=== PATIENT | male | born 1990 | race Caucasian/White ===

== ENCOUNTER 2020-03-23 22:36 | Inpatient (IN) ==
[2020-03-23] MEDS ORDERED: SODIUM CHLORIDE 0.9% 1000ML 1,000 ML IV ONE (23:17)
--- NOTE | 2020-03-23 23:22 | Emergency Department Note ---
History of Present Illness General Chief complaint: Leg Injury/Pain Stated complaint: SEVERE THIGH/LEG PAIN Time Seen by Provider: 03/23/20 23:03 Source: patient Mode of arrival: other Limitations: no limitations History of Present Illness Provider complaint: Bilateral leg pain Onset (ago): day(s) 2 Location: lower extremity Radiation: non-radiation Severity: severe Maximum Pain Intensity: 10 Quality: + constant Relieved By: + none Exacerbated By: + movement Associated symptoms: + denies other symptoms Treatments prior to arrival: NSAID, aspirin and heat therapy This is a 29-year-old male who presents with nursing home guards due to complaints of persistent bilateral lower extremity pain. Patient states he does do exercises on a regular basis and 2 days ago did "leg day". Patient states he was not lifting or using any weights only his own natural body weight to do squats, lunges, etc. Patient states he was sore the next day however thought it was just from doing exercises. States he tried to take warm showers and warm baths, rubs a topical muscle agent, tried ibuprofen, Tylenol, and aspirin with no relief. Patient states over the last 2 to 3 days the pain has gotten so worse that he feels as though his legs give out and he has fallen several times. Patient denies any injury related to the fall. Patient denies any upper extremity or upper body pain or injury. Patient denies any prior similar episodes. Patient states no history of kidney problems save for kidney stones. Patient did have a kidney stone approximately a week ago. Patient states with the persistent pain and falls, the medical staff dipped his urine and immediately sent him to the emergency room. Pt seen during a time of high acuity and national emergency pandemic while wearing PPE. Home Medications Medication Instructions Recorded Confirmed Type buspirone 10 mg PO BID 03/24/20 03/24/20 History cetirizine [Zyrtec] 10 mg PO DAILY 03/24/20 03/24/20 History omeprazole 20 mg PO DAILY 03/24/20 03/24/20 History trazodone 50 mg PO HS 03/24/20 03/24/20 History Allergies Allergy/AdvReac Type Severity Reaction Status Date / Time No Known Allergies Allergy Unverified 03/23/20 23:16 Past Med/Surg History Medical History (Updated 03/24/20 @ 04:55 by Pop Ortiz MD) GERD (gastroesophageal reflux disease) Hepatitis C Kidney stone Social History Smoking Status: Former smoker Feels Safe at Home: Yes Review of Systems See HPI for pertinent positives & negatives. and A total of 10 systems reviewed and were otherwise negative Physical Exam Vital Signs Vital Signs - 24 hr 03/23/20 22:41 03/24/20 00:54 03/24/20 01:30 Temperature 36.3 C L Temperature Source Temporal Artery Scan Pulse Rate 84 72 70 Pulse Rate from SpO2 Sensor 72 Respiratory Rate 18 20 20 Respiratory Effort / Characteristics Non-Labored Spontaneous Respiratory Depth Normal Blood Pressure 147/90 H 139/92 140/92 Blood Pressure Mean 109 103 99 Pulse Oximetry 96 98 Oxygen Delivery Method Room Air Sepsis Recent Fever Within 48 Hours No Sepsis New/Unexplained Change in Mental Status N/A Sepsis Action Taken by Nursing No Action Required 03/24/20 02:11 Temperature Temperature Source Pulse Rate 64 Pulse Rate from SpO2 Sensor 64 Respiratory Rate 20 Respiratory Effort / Characteristics Respiratory Depth Blood Pressure 137/90 Blood Pressure Mean 106 Pulse Oximetry 98 Oxygen Delivery Method Sepsis Recent Fever Within 48 Hours Sepsis New/Unexplained Change in Mental Status Sepsis Action Taken by Nursing GENERAL: alert, well appearing, well nourished, no distress, non-toxic EYE EXAM: normal conjunctiva, PERRL and EOM's grossly intact OROPHARYNX: no exudate, no erythema, lips, buccal mucosa, and tongue normal and mucous membranes are moist NECK: supple, no nuchal rigidity, no adenopathy, non-tender LUNGS: Clear to auscultation. Normal chest wall mechanics, no w/r/r HEART: no murmurs, S1 normal and S2 normal ABDOMEN: abdomen soft, non-tender, normo-active bowel sounds, no masses, no rebound or guarding. BACK: Back is symmetrical on inspection and there is no deformity, no midline tenderness, no CVA tenderness. SKIN: no rashes and no bruising UPPER EXTREMITIES: upper extremities are grossly normal. FROM, nml pulses b/l. LOWER EXTREMITIES: No pitting edema. No joint effusions. Pain with flexion from the hips or lifting the leg. No pain with dorsiflexion or plantarflexion. Compartments soft. FROM, nml pulses b/l. NEURO EXAM: Normal sensorium, cranial nerves II-XII grossly intact, normal speech, no gross weakness of arms, no gross weakness of legs. Gross sensation intact. Course Course 0056: Pt updated on results so far. Pt states he does have Hep C from prior drug use. He states his levels were recently tested to evaluate for possible treatment options but he doesn't know results. 0220: Discussed with Dr. Ortiz. Administered Medications Potassium Chloride/Sodium Chloride (Normal Saline W/20 Meq Kcl) 20 meq in 1,000 mls @ 150 mls/hr IV .Q6H40M CODY Stop: 04/23/20 03:44 Last Admin: 03/24/20 04:11 Dose: 150 mls/hr Documented by: [id number] Discontinued Medications Dexamethasone (Dexamethasone Sod Inj 10 Mg/Ml Vial) 10 mg IV NOW STA Stop: 03/24/20 04:02 Last Admin: 03/24/20 04:11 Dose: 10 mg Documented by: [id number] Sodium Chloride (Nss 1000ml) 1,000 mls @ 999 mls/hr IV .Q1H1M ONE Stop: 03/24/20 00:17 Last Infusion: 03/24/20 00:56 Dose: 0 mls/hr Documented by: [id number] Admin: 03/24/20 00:02 Dose: 999 mls/hr Documented by: [id number] Lactated Ringer's (Lr) 1,000 mls @ 999 mls/hr IV .Q1H1M ONE Stop: 03/24/20 01:40 Last Infusion: 03/24/20 02:12 Dose: 0 mls/hr Documented by: [id number] Admin: 03/24/20 00:56 Dose: 999 mls/hr Documented by: [id number] Medical Decision Making Differential Diagnosis Fracture, subluxation, dislocation, contusion, ligamentous injury, neurovascular, compartment syndrome, rhabdomyolysis, as well as other pathologies. Medical Records Attestation: I reviewed the patient's medical records. Home Medications Current Medication List: was personally reviewed by me Laboratory Data Attestation: I reviewed the patient's lab results. Result diagrams: 03/23/20 23:52 03/23/20 23:52 Lab Results 03/23/20 03/23/20 03/23/20 Range/Units 23:52 23:52 23:52 WBC 7.06 (4.8-10.8) K/uL RBC 5.14 (4.7-6.1) M/uL Hgb 15.7 (14.0-18.0) g/dL Hct 44.9 (42-52) % MCV 87.4 (80-100) fL MCH 30.5 (25-34) pg MCHC 35.0 (32-36) g/dL RDW Std Deviation 39.8 (36.4-46.3) fL RDW Coeff of [place] 12.4 (11.5-14.5) % Plt Count 260 (130-400) K/uL MPV 9.3 (7.4-10.4) fL Immature Gran % (Auto) 0.3 % Neut % (Auto) 51.7 % Lymph % (Auto) 32.4 % [place] % (Auto) 13.5 % Eos % (Auto) 1.8 % Baso % (Auto) 0.3 % Neut # (Auto) 3.65 (1.4-6.5) K/uL Lymph # (Auto) 2.29 (1.2-3.4) K/uL [place] # (Auto) 0.95 H (0.11-0.59) K/uL Eos # (Auto) 0.13 (0-0.5) K/uL Baso # (Auto) 0.02 (0-0.2) K/uL Immature Gran # (Auto) 0.02 (0.00-0.02) K/uL PT 10.2 (9.0-12.0) Seconds INR 1.0 (0.9-1.1) Sodium 141 (136-145) mmol/L Potassium 3.8 (3.5-5.1) mmol/L Chloride 109 H (98-107) mmol/L Carbon Dioxide 28 (21-32) mmol/L Anion Gap 4.0 (3-11) BUN 16 (7-18) mg/dl Creatinine 0.81 (0.6-1.4) mg/dl Est Cr Clr Drug Dosing 163.4 ml/min Est GFR ( Amer) 137.3 Est GFR (Non-Af Amer) 118.4 BUN/Creatinine Ratio 19.7 (10-20) Glucose 94 (70-99) mg/dl Calcium 8.7 (8.5-10.1) mg/dl Total Bilirubin 0.5 (0.2-1) mg/dl AST 1327 H (15-37) U/L ALT 219 H (12-78) U/L Alkaline Phosphatase 110 (45-117) U/L Total Creatine Kinase 01977 H (39-308) U/L Total Protein 7.8 (6.4-8.2) gm/dl Albumin 3.7 (3.4-5.0) gm/dl Globulin 4.1 H (2.5-4.0) gm/dl Albumin/Globulin Ratio 0.9 (0.9-2) Urine Color Urine Appearance (Clear) Urine pH (4.5-7.5) Ur Specific [place] (1.000-1.030) Urine Protein (Negative) Urine Glucose (UA) (Negative) Urine Ketones (Negative) Urine Blood (Negative) Urine Nitrite (Negative) Urine Bilirubin (Negative) Urine Urobilinogen (Negative) Ur Leukocyte Esterase (Negative) Urine WBC (Auto) (0-5) /hpf Urine RBC (Auto) (0-4) /hpf U Hyaline Cast (Auto) (0-5) /lpf U Epithel Cells (Auto) (0-5) /lpf Urine Bacteria (Auto) (Negative) SARS-CoV-2, RNA, NAAT (NEGATIVE) SARS-CoV-2 Ag (Rapid) (Negative) 03/24/20 03/24/20 03/24/20 Range/Units 00:57 02:21 02:35 WBC (4.8-10.8) K/uL RBC (4.7-6.1) M/uL Hgb (14.0-18.0) g/dL Hct (42-52) % MCV (80-100) fL MCH (25-34) pg MCHC (32-36) g/dL RDW Std Deviation (36.4-46.3) fL RDW Coeff of Effie (11.5-14.5) % Plt Count (130-400) K/uL MPV (7.4-10.4) fL Immature Gran % (Auto) % Neut % (Auto) % Lymph % (Auto) % [place] % (Auto) % Eos % (Auto) % Baso % (Auto) % Neut # (Auto) (1.4-6.5) K/uL Lymph # (Auto) (1.2-3.4) K/uL [place] # (Auto) (0.11-0.59) K/uL Eos # (Auto) (0-0.5) K/uL Baso # (Auto) (0-0.2) K/uL Immature Gran # (Auto) (0.00-0.02) K/uL PT (9.0-12.0) Seconds INR (0.9-1.1) Sodium (136-145) mmol/L Potassium (3.5-5.1) mmol/L Chloride (98-107) mmol/L Carbon Dioxide (21-32) mmol/L Anion Gap (3-11) BUN (7-18) mg/dl Creatinine (0.6-1.4) mg/dl Est Cr Clr Drug Dosing ml/min Est GFR ( Amer) Est GFR (Non-Af Amer) BUN/Creatinine Ratio (10-20) Glucose (70-99) mg/dl Calcium (8.5-10.1) mg/dl Total Bilirubin (0.2-1) mg/dl AST (15-37) U/L ALT (12-78) U/L Alkaline Phosphatase (45-117) U/L Total Creatine Kinase (39-308) U/L Total Protein (6.4-8.2) gm/dl Albumin (3.4-5.0) gm/dl Globulin (2.5-4.0) gm/dl Albumin/Globulin Ratio (0.9-2) Urine Color Yellow Urine Appearance Clear (Clear) Urine pH 7.0 (4.5-7.5) Ur Specific [place] 1.019 (1.000-1.030) Urine Protein 2+ H (Negative) Urine Glucose (UA) Negative (Negative) Urine Ketones Negative (Negative) Urine Blood 3+ H (Negative) Urine Nitrite Negative (Negative) Urine Bilirubin Negative (Negative) Urine Urobilinogen Negative (Negative) Ur Leukocyte Esterase Negative (Negative) Urine WBC (Auto) 0 (0-5) /hpf Urine RBC (Auto) 0-4 (0-4) /hpf U Hyaline Cast (Auto) 0 (0-5) /lpf U Epithel Cells (Auto) 0-5 (0-5) /lpf Urine Bacteria (Auto) Negative (Negative) SARS-CoV-2, RNA, NAAT POSITIVE A* (NEGATIVE) SARS-CoV-2 Ag (Rapid) Positive A* (Negative) ECG Data Attestation: I personally reviewed and interpreted this ECG as follows: Indication: + weakness Rate (beats per minute): 68 Rhythm: + normal sinus ECG Intervals/blocks: + Normal QRS and + Normal QT ECG [place]: + Normal ECG ST segments: + Normal ST segments and + T-wave inversions (III only) MDM Narrative Patient presents due to atraumatic bilateral leg pain after being sent in from nursing home due to concern for possible rhabdomyolysis. Patient well-appearing here, no evidence of trauma, no evidence of deformity, septic arthritis, joint effusions. I do not suspect DVT. No overlying rash or sores to suggest cellulitis. Patient complained of persistent soreness last 3 days despite use of OTC meds and heat to his bilateral proximal lower extremities. Labs sent including a CK. Patient CBC reassuring, normal renal function, however after 2 calls to the lab due to delay in results, patient ultimately found to have a markedly elevated CK. By the time this was resulted patient had already received 2 L of IV fluids. Due to concern for potential ARIN due to markedly elevated CK, case discussed with hospitalist after updating the patient on resu lts and plan. Patient verbalized understanding and was in agreement. A bedside Covid test was performed and was positive, which could contribute to the inflammatory response. Patient was found to have a transaminitis although patient does admit to a history of hep C and being told his liver numbers were abnormal previously. There are no prior records for comparative purposes. Patient with no abdominal pain, or other GI symptoms to suggest other GI etiology for this. Case discussed with hospitalist for additional evaluation and management. An order was placed for continuous cardiac monitoring. The monitor shows a rate of _77_ with _normal sinus_ rhythm. Impression & Plan Bilateral leg pain, Rhabdomyolysis, COVID-19 Discharge Plan Visit Data Chief Complaint: Leg Injury/Pain Stated Complaint: SEVERE THIGH/LEG PAIN ED Provider: Evelyn Swartz Discharge Problem: Bilateral leg pain, Rhabdomyolysis, COVID-19 Patient Disposition: Admitted As Inpatient Discharge Instructions Interventions: ED Discharge Assessment Last Done: 03/24/20 03:47 Discharge Problem: Rhabdomyolysis Qualifiers: Rhabdomyolysis type: non-traumatic Qualified Code(s): M62.82 - Rhabdomyolysis
[2020-03-24] LABS: Basophils # (auto) 0.02 K/uL (0-0.2); Basophils % (auto) 0.3 %; Eosinophils # (auto) 0.13 K/uL (0-0.5); Eosinophils % (auto) 1.8 %; Hematocrit (blood only) 44.9 % (42-52); Hemoglobin 15.7 g/dL (14.0-18.0); Immature Granulocytes # (auto) 0.02 K/uL (0.00-0.02); Immature Granulocytes % (auto) 0.3 %; Lymphocytes # (auto) 2.29 K/uL (1.2-3.4); Lymphocytes % (auto) 32.4 %; Mean Corpuscular Hemoglobin 30.5 pg (25-34); Mean Corpuscular Volume 87.4 fL (80-100); Mean Platelet Volume 9.3 fL (7.4-10.4); Monocytes # (auto) 0.95 K/uL (0.11-0.59); Monocytes % (auto) 13.5 %; Neutrophils # (auto) 3.65 K/uL (1.4-6.5); Neutrophils % (auto) 51.7 %; Platelet Count 260 K/uL (130-400); RDW Coefficient of Variation 12.4 % (11.5-14.5); RDW Standard Deviation 39.8 fL (36.4-46.3); Red Blood Count 5.14 M/uL (4.7-6.1); White Blood Count 7.06 K/uL (4.8-10.8)
[2020-03-24 00:19] LABS: Albumin Level 3.7 gm/dl (3.4-5.0); BUN Creatinine Ratio 19.7 (10-20); Calcium 8.7 mg/dl (8.5-10.1); Creatinine Clr Calc Pharmacy 163.4 ml/min; Est GFR (African American) 137.3; Est GFR (Non-African American) 118.4; Potassium 3.8 mmol/L (3.5-5.1)
[2020-03-24] MEDS ORDERED: LACTATED RINGER'S 1,000 ML IV ONE (00:40)
[2020-03-24 00:46] LABS: Albumin Globulin Ratio 0.9 (0.9-2); Bilirubin,Total 0.5 mg/dl (0.2-1); Globulin 4.1 gm/dl (2.5-4.0); Total Protein 7.8 gm/dl (6.4-8.2)
[2020-03-24 01:11] LABS: Appearance Urine Clear (Clear); Bacteria Urine Automated Negative (Negative); Bilirubin Urine Negative (Negative); Blood Urine 3+ (Negative); Cast Urine Automated 0 /lpf (0-5); Color Urine Yellow; Epithelial Cell Urine Auto 0-5 /lpf (0-5); Glucose Urine UA Negative (Negative); Ketones Urine Negative (Negative); Leukocyte Esterase Urine Negative (Negative); Nitrite Urine Negative (Negative); Protein Urine 2+ (Negative); RBC Urine Automated 0-4 /hpf (0-4); Specific Gravity Urine 1.019 (1.000-1.030); Urobilinogen Urine Negative (Negative); WBC Urine Automated 0 /hpf (0-5)
[2020-03-24 02:46] LABS: Prothrombin Time 10.2 Seconds (9.0-12.0)
[2020-03-24] MEDS ORDERED: traZODone HCL 50 MG TAB PO PRN (03:45)
[2020-03-24] MEDS ORDERED: ONDANSETRON INJ 2 MG/ML 2 ML VIAL IV PRN (03:45)
[2020-03-24] MEDS ORDERED: DEXAMETHASONE SOD INJ 10 MG/ML VIAL IV STA (04:01)
[2020-03-24] MEDS: NSS + 20MEQ KCL 20 MEQ/1,000 ML BAG IV SCH ×3 (04:11→17:32)
--- NOTE | 2020-03-24 05:01 | History & Physical Report ---
Date of Service March 24, 2020 Assessment & Plan (1) Rhabdomyolysis: Rhabdomyolysis/severe bilateral lower extremity pain- AST 1327, [place] 219[place] [address]. Follow labs serially: CBC with differential, chemistry profile, and CK. NSS + KCl 20 mEq at 150 mils per hour Present on Admission?: Yes (2) Bilateral leg pain: See above Present on Admission?: Yes (3) Infection due to 2019 novel coronavirus: Infection due to COVID-19 virus- Need acute development of rhabdomyolysis in this patient, with no change in his usual exercise pattern, may be a complication of COVID-19 virus. Dexamethasone 6 mg IV every morning Zinc sulfate 220 mg p.o. every morning Monitor for any additional symptoms Present on Admission?: Yes (4) Hepatitis C: Hepatitis C/abnormal LFTs- No previous labs for comparison. We will follow labs serially. Suspect at least in part his significantly abnormal LFTs are a combination of rhabdomyolysis on top of hepatitis C Present on Admission?: Yes (5) Abnormal LFTs: See above Present on Admission?: Yes (6) GERD (gastroesophageal reflux disease): Change omeprazole to pantoprazole Present on Admission?: Yes Admission and Anticipated Discharge Date Admission Date: March 24, 2020 History of Present Illness Chief Complaint: The patient presents to the emergency department with severe bilateral thigh and leg pain after his usual weekly workout of lower extremities Primary Care Provider: NO PCP The patient is a 29-year-old male inmate, with a past medical history including hepatitis C, GERD, allergic rhinitis, kidney stone, anxiety and insomnia, who presents to the emergency department with the above complaints. He usually does a workout every week for his lower extremities, but he developed extreme pain following his usual workout, and presents to the ED for assessment. He reports taking ibuprofen 1200 mg 3 times per day due to the pain. His most recent kidney stone was 1 week ago. Pertinent laboratories in ED: AST 1327, ALT 219, CK 92,087 and COVID-19 positive. Allergies Allergy/AdvReac Type Severity Reaction Status Date / Time No Known Allergies Allergy Unverified 03/23/20 23:16 Home Medications Medication Instructions Recorded Confirmed Type buspirone 10 mg PO BID 03/24/20 03/24/20 History cetirizine [Zyrtec] 10 mg PO DAILY 03/24/20 03/24/20 History omeprazole 20 mg PO DAILY 03/24/20 03/24/20 History trazodone 50 mg PO HS 03/24/20 03/24/20 History Past Med/Surg History Medical History Kidney stone Social History Smoking Status: Former smoker Feels Safe at Home: Yes Review of Systems Review of Systems: The patient denies chest pain, palpitations, shortness of breath, dyspnea on exertion, cough, lower extremity swelling, sore throat, fevers, chills, sweats, nausea, vomiting, diarrhea , constipation, abdominal pain, pelvic pain, blood in urine or stool, dysuria, urinary frequency or urgency, lightheadedness, dizziness, headache, memory loss, loss of consciousness, rash, abnormal bruising or bleeding, imbalance, focal or generalized weakness, numbness or tingling in arms, back or neck pain, or night sweats. The review of systems is otherwise negative other than for that already noted above, and at least 10 systems have been reviewed. Physical Exam Physical Exam: The patient is awake, alert and oriented 3, well developed and well nourished, normocephalic and atraumatic, lying in bed and in no acute distress. HEENT--PERRL, EOMI, mucous membranes and oropharynx dry. Neck--supple. No JVD. No bruits. Thyroid normal, trachea midline, no adenopathy. Heart--normal S1 and S2. No murmurs, rubs or gallops. Lungs--clear bilaterally, no respiratory distress, no accessory muscle use. Abdomen--normal bowel sounds and soft. Nontender. Nondistended, no hernias or masses, no organomegaly. Extremities--no cyanosis or clubbing. No edema. There are good distal pulses b/l. Dermatologic--normal skin turgor, normal color, no abnormal lymph nodes, no rash. Neurologic--cranial nerves II through XII grossly intact. Rheumatologic--decreased range of motion lower extremities due to pain Psychiatric--normal affect. Results & Data Results & Data ([facility]) Vital Signs (Past 12 Hours) Vital Signs Temp Pulse Pulse Resp BP BP Pulse Ox 03/24/20 04:01 74 16 136/89 97 03/24/20 03:00 81 13 105/95 96 03/24/20 02:11 64 20 137/90 98 03/24/20 01:30 70 20 140/92 03/24/20 00:54 72 20 139/92 98 03/23/20 22:41 97.3 F L 84 18 147/90 H 96 Pulse Ox 03/24/20 04:01 97 03/24/20 03:00 03/24/20 02:11 03/24/20 01:30 03/24/20 00:54 03/23/20 22:41 Laboratory Results Laboratory Results WBC 7.06 K/uL (4.8-10.8) 03/23/20 23:52 RBC 5.14 M/uL (4.7-6.1) 03/23/20 23:52 Hgb 15.7 g/dL (14.0-18.0) 03/23/20 23:52 Hct 44.9 % (42-52) 03/23/20 23:52 MCV 87.4 fL (80-100) 03/23/20 23:52 MCH 30.5 pg (25-34) 03/23/20 23:52 MCHC 35.0 g/dL (32-36) 03/23/20 23:52 RDW Std Deviation 39.8 fL (36.4-46.3) 03/23/20 23:52 RDW Coeff of Effie 12.4 % (11.5-14.5) 03/23/20 23:52 Plt Count 260 K/uL (130-400) 03/23/20 23:52 MPV 9.3 fL (7.4-10.4) 03/23/20 23:52 Immature Gran % (Auto) 0.3 % 03/23/20 23:52 Neut % (Auto) 51.7 % 03/23/20 23:52 Lymph % (Auto) 32.4 % 03/23/20 23:52 [place] % (Auto) 13.5 % 03/23/20 23:52 Eos % (Auto) 1.8 % 03/23/20 23:52 Baso % (Auto) 0.3 % 03/23/20 23:52 Neut # (Auto) 3.65 K/uL (1.4-6.5) 03/23/20 23:52 Lymph # (Auto) 2.29 K/uL (1.2-3.4) 03/23/20 23:52 [place] # (Auto) 0.95 K/uL (0.11-0.59) H 03/23/20 23:52 Eos # (Auto) 0.13 K/uL (0-0.5) 03/23/20 23:52 Baso # (Auto) 0.02 K/uL (0-0.2) 03/23/20 23:52 Immature Gran # (Auto) 0.02 K/uL (0.00-0.02) 03/23/20 23:52 PT 10.2 Seconds (9.0-12.0) 03/23/20 23:52 INR 1.0 (0.9-1.1) 03/23/20 23:52 Sodium 141 mmol/L (136-145) 03/23/20 23:52 Potassium 3.8 mmol/L (3.5-5.1) 03/23/20 23:52 Chloride 109 mmol/L (98-107) H 03/23/20 23:52 Carbon Dioxide 28 mmol/L (21-32) 03/23/20 23:52 Anion Gap 4.0 (3-11) 03/23/20 23:52 BUN 16 mg/dl (7-18) 03/23/20 23:52 Creatinine 0.81 mg/dl (0.6-1.4) 03/23/20 23:52 Est Cr Clr Drug Dosing 163.4 ml/min 03/23/20 23:52 Est GFR ( Amer) 137.3 03/23/20 23:52 Est GFR (Non-Af Amer) 118.4 03/23/20 23:52 BUN/Creatinine Ratio 19.7 (10-20) 03/23/20 23:52 Glucose 94 mg/dl (70-99) 03/23/20 23:52 Calcium 8.7 mg/dl (8.5-10.1) 03/23/20 23:52 Total Bilirubin 0.5 mg/dl (0.2-1) 03/23/20 23:52 AST 1327 U/L (15-37) H 03/23/20 23:52 ALT 219 U/L (12-78) H 03/23/20 23:52 Alkaline Phosphatase 110 U/L (45-117) 03/23/20 23:52 Total Creatine Kinase 56746 U/L (39-308) H 03/23/20 23:52 Total Protein 7.8 gm/dl (6.4-8.2) 03/23/20 23:52 Albumin 3.7 gm/dl (3.4-5.0) 03/23/20 23:52 Globulin 4.1 gm/dl (2.5-4.0) H 03/23/20 23:52 Albumin/Globulin Ratio 0.9 (0.9-2) 03/23/20 23:52 Urine Color Yellow 03/24/20 00:57 Urine Appearance Clear (Clear) 03/24/20 00:57 Urine pH 7.0 (4.5-7.5) 03/24/20 00:57 Ur Specific [place] 1.019 (1.000-1.030) 03/24/20 00:57 Urine Protein 2+ (Negative) H 03/24/20 00:57 Urine Glucose (UA) Negative (Negative) 03/24/20 00:57 Urine Ketones Negative (Negative) 03/24/20 00:57 Urine Blood 3+ (Negative) H 03/24/20 00:57 Urine Nitrite Negative (Negative) 03/24/20 00:57 Urine Bilirubin Negative (Negative) 03/24/20 00:57 Urine Urobilinogen Negative (Negative) 03/24/20 00:57 Ur Leukocyte Esterase Negative (Negative) 03/24/20 00:57 Urine WBC (Auto) 0 /hpf (0-5) 03/24/20 00:57 Urine RBC (Auto) 0-4 /hpf (0-4) 03/24/20 00:57 U Hyaline Cast (Auto) 0 /lpf (0-5) 03/24/20 00:57 U Epithel Cells (Auto) 0-5 /lpf (0-5) 03/24/20 00:57 Urine Bacteria (Auto) Negative (Negative) 03/24/20 00:57 SARS-CoV-2, RNA, NAAT POSITIVE (NEGATIVE) A* 03/24/20 02:21 SARS-CoV-2 Ag (Rapid) Positive (Negative) A* 03/24/20 02:35 Code Status & VTE Plan Code Status Full code VTE Prophylaxis Plan VTE Prophylaxis will be ordered: Yes PG Care Time/CCT Total # of Minutes Spent Total Time Spent with Patient: Total time spent is greater than 50% in coordination of care (as documented) at patient's floor/unit and/or counseling patient: Coding Level of Care Code 57219 Initial Inpt Care Lvl 3 Diagnoses Rhabdomyolysis M62.82 Rhabdomyolysis type: non-traumatic Bilateral leg pain M79.604; M79.605 Infection due to 2019 novel coronavirus U07.1 Hepatitis C B19.20 Abnormal LFTs R94.5 GERD (gastroesophageal reflux disease) K21.9 (1) Rhabdomyolysis Rhabdomyolysis type: non-traumatic Qualified Code(s): M62.82 - Rhabdomyolysis
[2020-03-24] MEDS ORDERED: diphenhydrAMINE 50 MG/ML VIAL IV STA (06:25)
[2020-03-24] MEDS ORDERED: traMADol HCL 50 MG TABLET PO PRN (06:27)
[2020-03-24] MEDS ORDERED: diphenhydrAMINE 50 MG/ML VIAL ONE (06:31)
[2020-03-24] MEDS ORDERED: MoRPHine SULFATE 2 MG/ML CARP IV PRN (08:31)
--- NOTE | 2020-03-24 08:34 | Hospitalist Progress Note ---
Date of Service March 24, 2020 Assessment & Plan (1) Rhabdomyolysis: Rhabdomyolysis/severe bilateral lower extremity pain- AST 1327, ALT 219, [place] [address]. Follow labs NSS + KCl 20 mEq at 200 mils per hour, try to assure good urine output (2) Bilateral leg pain: See above (3) Infection due to 2019 novel coronavirus: Infection due to COVID-19 virus-no hypoxia, no cxr done Dexamethasone 6 mg IV every morning Zinc sulfate 220 mg p.o. every morning (4) Hepatitis C: Hepatitis C/abnormal LFTs- No previous labs for comparison. Suspect at least in part his significantly abnormal LFTs are a combination of rhabdomyolysis plus history of hepatitis C (5) Abnormal LFTs: See above (6) GERD (gastroesophageal reflux disease): Change omeprazole to pantoprazole Admission and Anticipated Discharge Date Admission Date: March 24, 2020 Subjective pt still has painful legs and marked tenderness Review of Systems Review of Systems: Mild distress and fatigue no headache, blurry or double vision no speech or swallowing issues no chest pain, pressure or palpitations no shortness of breath, cough or wheezes no abdominal pain, nausea or vomiting, diarrhea or constipation no dysuria, hematuria or frequency Bilateral leg pain and swelling no back pain, CVA tenderness or radicular pain no bruising, bleeding or rashes no focal signs of weakness or numbness or altered sensation no complaints of anxiety or depression.. Physical Exam Physical Exam: The patient appeared well nourished and normally developed. Vital signs as documented. Head exam is normocephalic atraumatic no scleral icterus Neck is without JVD, thyromegaly, or carotid bruits. Lungs are clear to auscultation, no focal loss of breath sounds Cardiac exam, Rhythm is regular.. No murmurs, rubs or gallops. Abdominal exam reveals normal bowel sounds, soft non tender, no masses Extremities are mildly edematous and both pedal pulses are present Neurologic exam is alert and oriented, no focal loss of strength or sensation Skin is without bruises or rashes Psychologically is without concerns for anxiety or depression. Results & Data Results & Data ([facility]) Vital Signs (Past 12 Hours) Vital Signs Temp Pulse Pulse Resp BP BP Pulse Ox 03/24/20 08:11 97.5 F L 78 15 150/91 H 98 03/24/20 06:36 79 20 174/96 H 97 12/26/20 04:01 74 16 136/89 97 03/24/20 03:00 81 13 105/95 96 03/24/20 02:11 64 20 137/90 98 03/24/20 01:30 70 20 140/92 03/24/20 00:54 72 20 139/92 98 03/23/20 22:41 97.3 F L 84 18 147/90 H 96 Pulse Ox 03/24/20 08:11 03/24/20 06:36 03/24/20 04:01 97 03/24/20 03:00 03/24/20 02:11 03/24/20 01:30 03/24/20 00:54 03/23/20 22:41 PG Care Time/CCT Total # of Minutes Spent Total Time Spent with Patient: Total time spent is greater than 50% in coordination of care (as documented) at patient's floor/unit and/or counseling patient: Coding Level of Care Code None Diagnoses Rhabdomyolysis M62.82 Rhabdomyolysis type: non-traumatic Bilateral leg pain M79.604; M79.605 Infection due to 2019 novel coronavirus U07.1 Hepatitis C B19.20 Abnormal LFTs R94.5 GERD (gastroesophageal reflux disease) K21.9 (1) Rhabdomyolysis Rhabdomyolysis type: non-traumatic Qualified Code(s): M62.82 - Rhabdomyolysis
[2020-03-24] MEDS: MoRPHine SULFATE 4 MG/ML 1 ML CARP\\VIAL IV PRN ×4 (08:53→21:19)
[2020-03-24] MEDS: PANTOprazole 40 MG TAB PO SCH (08:54)
[2020-03-24] MEDS: ZINC SULFATE 220 MG CAPSULE PO SCH (08:54)
[2020-03-24] MEDS: CETIRIZINE HCL 10 MG TABLET PO SCH (08:54)
--- NOTE | 2020-03-24 13:35 | Electrocardiogram Report ---
Test Reason : Blood Pressure : / mmHG Vent. Rate : 068 BPM Atrial Rate : 068 BPM P-R Int : 152 ms QRS Dur : 086 ms QT Int : 402 ms P-R-T Axes : 039 052 021 degrees QTc Int : 427 ms Normal sinus rhythm Normal ECG No previous ECGs available Confirmed by Helder Jauregui ([id number]) on 03/24/2020 1:35:17 PM Referred By: Natanael Castellano Confirmed By:Helder Jauregui
[2020-03-24] MEDS: oxyCODONE HCL IR 5 MG TAB (IMMEDIATE RELEASE) PO PRN (15:56)
[2020-03-24] MEDS: KETOROLAC TROMETHAMINE 15 MG/ML VIAL IV PRN (19:28)
[2020-03-25] MEDS: oxyCODONE HCL IR 5 MG TAB (IMMEDIATE RELEASE) PO PRN ×4 (00:02→22:58)
[2020-03-25] MEDS: NSS + 20MEQ KCL 20 MEQ/1,000 ML BAG IV SCH ×4 (00:19→20:01)
[2020-03-25] MEDS: MoRPHine SULFATE 4 MG/ML 1 ML CARP\\VIAL IV PRN ×4 (01:51→20:01)
[2020-03-25] MEDS: KETOROLAC TROMETHAMINE 15 MG/ML VIAL IV PRN ×3 (05:17→22:58)
[2020-03-25] MEDS: CETIRIZINE HCL 10 MG TABLET PO SCH (08:59)
[2020-03-25] MEDS: ZINC SULFATE 220 MG CAPSULE PO SCH (08:59)
[2020-03-25] MEDS: PANTOprazole 40 MG TAB PO SCH (08:59)
[2020-03-25] MEDS: dexAMETHasone 6 MG in SYRINGE 0 ML IV SCH (08:59)
[2020-03-25 09:04] LABS: Basophils # (auto) 0.01 K/uL (0-0.2); Basophils % (auto) 0.1 %; Hematocrit (blood only) 43.5 % (42-52); Immature Granulocytes # (auto) 0.04 K/uL (0.00-0.02); Immature Granulocytes % (auto) 0.3 %; Lymphocytes # (auto) 2.01 K/uL (1.2-3.4); Lymphocytes % (auto) 14.5 %; Mean Corpuscular Hemoglobin 30.6 pg (25-34); Mean Corpuscular Hgb Conc 34.5 g/dL (32-36); Mean Corpuscular Volume 88.8 fL (80-100); Mean Platelet Volume 9.2 fL (7.4-10.4); Monocytes # (auto) 1.36 K/uL (0.11-0.59); Monocytes % (auto) 9.8 %; Neutrophils # (auto) 10.42 K/uL (1.4-6.5); Neutrophils % (auto) 75.3 %; Platelet Count 277 K/uL (130-400); RDW Coefficient of Variation 12.5 % (11.5-14.5); RDW Standard Deviation 39.9 fL (36.4-46.3); White Blood Count 13.84 K/uL (4.8-10.8)
[2020-03-25 09:15] LABS: Partial Thromboplastin Ratio 1.1; Partial Thromboplastin Time 29.6 Seconds (21.0-31.0); Prothrombin Time 10.3 Seconds (9.0-12.0)
[2020-03-25 09:37] LABS: Albumin Level 3.2 gm/dl (3.4-5.0); BUN Creatinine Ratio 19.7 (10-20); Calcium 8.5 mg/dl (8.5-10.1); Creatinine Clr Calc Pharmacy 183.8 ml/min; Est GFR (African American) 144.1; Est GFR (Non-African American) 124.3; Potassium 4.6 mmol/L (3.5-5.1)
[2020-03-25 10:01] LABS: Albumin Globulin Ratio 0.8 (0.9-2); Bilirubin,Total 0.5 mg/dl (0.2-1); Globulin 3.8 gm/dl (2.5-4.0)
--- NOTE | 2020-03-25 13:26 | Hospitalist Progress Note ---
Date of Service March 25, 2020 Assessment & Plan (1) Rhabdomyolysis: Rhabdomyolysis/severe bilateral lower extremity pain- lft and ck coming down with hydration NSS + KCl 20 mEq at 150mils per hour, try to assure good urine output (2) Bilateral leg pain: See above (3) Infection due to 2019 novel coronavirus: Infection due to COVID-19 virus-no hypoxia, no cxr done remains asx Dexamethasone 6 mg IV every morning Zinc sulfate 220 mg p.o. every morning (4) Hepatitis C: Hepatitis C/abnormal LFTs- No previous labs for comparison. Suspect at least in part his significantly abnormal LFTs are a combination of rhabdomyolysis plus history of hepatitis C (5) Abnormal LFTs: See above (6) GERD (gastroesophageal reflux disease): Change omeprazole to pantoprazole Admission and Anticipated Discharge Date Admission Date: March 24, 2020 Subjective pt still has painful legs and marked tenderness Review of Systems Review of Systems: Mild distress and fatigue no headache, blurry or double vision no speech or swallowing issues no chest pain, pressure or palpitations no shortness of breath, cough or wheezes no abdominal pain, nausea or vomiting, diarrhea or constipation no dysuria, hematuria or frequency Bilateral leg pain and swelling no back pain, CVA tenderness or radicular pain no bruising, bleeding or rashes no focal signs of weakness or numbness or altered sensation no complaints of anxiety or depression.. Physical Exam Physical Exam: The patient appeared well nourished and normally developed. Vital signs as documented. Head exam is normocephalic atraumatic no scleral icterus Neck is without JVD, thyromegaly, or carotid bruits. Lungs are clear to auscultation, no focal loss of breath sounds Cardiac exam, Rhythm is regular.. No murmurs, rubs or gallops. Abdominal exam reveals normal bowel sounds, soft non tender, no masses Extremities are mildly edematous and both pedal pulses are present Neurologic exam is alert and oriented, no focal loss of strength or sensation Skin is without bruises or rashes Psychologically is without concerns for anxiety or depression. Results & Data Results & Data ([facility]) Vital Signs (Past 12 Hours) Vital Signs Temp Pulse Resp BP Pulse Ox 03/25/20 07:57 97.3 F L 61 20 122/65 96 PG Care Time/CCT Total # of Minutes Spent Total Time Spent with Patient: Total time spent is greater than 50% in coordination of care (as documented) at patient's floor/unit and/or counseling patient: Coding Level of Care Code 56668 Subseq Hosp Care Lvl 2 Diagnoses Rhabdomyolysis M62.82 Rhabdomyolysis type: non-traumatic Bilateral leg pain M79.604; M79.605 Infection due to 2019 novel coronavirus U07.1 Hepatitis C B19.20 Abnormal LFTs R94.5 GERD (gastroesophageal reflux disease) K21.9 (1) Rhabdomyolysis Rhabdomyolysis type: non-traumatic Qualified Code(s): M62.82 - Rhabdomyolysis
[2020-03-26] MEDS: MoRPHine SULFATE 4 MG/ML 1 ML CARP\\VIAL IV PRN ×3 (01:27→13:53)
[2020-03-26] MEDS: NSS + 20MEQ KCL 20 MEQ/1,000 ML BAG IV SCH ×4 (01:33→20:10)
[2020-03-26] MEDS: oxyCODONE HCL IR 5 MG TAB (IMMEDIATE RELEASE) PO PRN ×4 (05:02→21:17)
[2020-03-26] MEDS: KETOROLAC TROMETHAMINE 15 MG/ML VIAL IV PRN (05:02)
[2020-03-26] MEDS: ZINC SULFATE 220 MG CAPSULE PO SCH (07:43)
[2020-03-26] MEDS: CETIRIZINE HCL 10 MG TABLET PO SCH (07:43)
[2020-03-26] MEDS: PANTOprazole 40 MG TAB PO SCH (07:43)
[2020-03-26] MEDS: dexAMETHasone 6 MG in SYRINGE 0 ML IV SCH (07:43)
[2020-03-26 10:15] LABS: Basophils # (auto) 0.01 K/uL (0-0.2); Basophils % (auto) 0.1 %; Hematocrit (blood only) 41.9 % (42-52); Hemoglobin 14.6 g/dL (14.0-18.0); Immature Granulocytes # (auto) 0.05 K/uL (0.00-0.02); Immature Granulocytes % (auto) 0.3 %; Lymphocytes % (auto) 10.3 %; Mean Corpuscular Hemoglobin 30.7 pg (25-34); Mean Corpuscular Hgb Conc 34.8 g/dL (32-36); Mean Platelet Volume 9.4 fL (7.4-10.4); Monocytes # (auto) 0.91 K/uL (0.11-0.59); Monocytes % (auto) 6.3 %; Neutrophils # (auto) 12.05 K/uL (1.4-6.5); Platelet Count 261 K/uL (130-400); RDW Coefficient of Variation 12.5 % (11.5-14.5); Red Blood Count 4.76 M/uL (4.7-6.1); White Blood Count 14.52 K/uL (4.8-10.8)
[2020-03-26 10:26] LABS: Partial Thromboplastin Time 27.1 Seconds (21.0-31.0); Prothrombin Time 10.4 Seconds (9.0-12.0)
[2020-03-26 10:31] LABS: Albumin Level 3.1 gm/dl (3.4-5.0); BUN Creatinine Ratio 22.1 (10-20); Calcium 8.4 mg/dl (8.5-10.1); Creatinine Clr Calc Pharmacy 163.4 ml/min; Est GFR (African American) 137.3; Est GFR (Non-African American) 118.4; Potassium 4.4 mmol/L (3.5-5.1)
[2020-03-26 10:59] LABS: Albumin Globulin Ratio 0.9 (0.9-2); Bilirubin,Total 0.5 mg/dl (0.2-1); Globulin 3.6 gm/dl (2.5-4.0); Total Protein 6.7 gm/dl (6.4-8.2)
[2020-03-26] MEDS ORDERED: NAPHAZOLIN/PHENIRAMIN OPH SOLN 75 DROPS/5 ML BTL OP PRN (15:06)
--- NOTE | 2020-03-26 15:10 | Hospitalist Progress Note ---
Date of Service March 26, 2020 Assessment & Plan (1) Rhabdomyolysis: Rhabdomyolysis/severe bilateral lower extremity pain- lft and ck coming down with hydration now at 22k, will hope to get to 10 k or less before discharge NSS + KCl 20 mEq at 200 mils per hour, try to assure good urine output (2) Bilateral leg pain: See above (3) Infection due to 2019 novel coronavirus: Infection due to COVID-19 virus-no hypoxia, no cxr done remains asx Dexamethasone 6 mg IV every morning Zinc sulfate 220 mg p.o. every morning (4) Hepatitis C: Hepatitis C/abnormal LFTs- No previous labs for comparison. Suspect at least in part his significantly abnormal LFTs are a combination of rhabdomyolysis plus history of hepatitis C (5) Abnormal LFTs: See above (6) GERD (gastroesophageal reflux disease): Change omeprazole to pantoprazole Admission and Anticipated Discharge Date Admission Date: March 24, 2020 Subjective pt still has painful legs and marked tenderness, now with some lateral right leg tenderness, will check doppler Review of Systems Review of Systems: Mild distress and fatigue no headache, blurry or double vision no speech or swallowing issues no chest pain, pressure or palpitations no shortness of breath, cough or wheezes no abdominal pain, nausea or vomiting, diarrhea or constipation no dysuria, hematuria or frequency Bilateral leg pain and swelling, R>L no back pain, CVA tenderness or radicular pain no bruising, bleeding or rashes no focal signs of weakness or numbness or altered sensation no complaints of anxiety or depression.. Physical Exam Physical Exam: The patient appeared well nourished and normally developed. Vital signs as documented. Head exam is normocephalic atraumatic no scleral icterus Neck is without JVD, thyromegaly, or carotid bruits. Lungs are clear to auscultation, no focal loss of breath sounds Cardiac exam, Rhythm is regular.. No murmurs, rubs or gallops. Abdominal exam reveals normal bowel sounds, soft non tender, no masses Extremities are mildly edematous and both pedal pulses are present, has some tenderness to lateral quadriceps head but no firm or warm or red Neurologic exam is alert and oriented, no focal loss of strength or sensation Skin is without bruises or rashes Psychologically is without concerns for anxiety or depression. Results & Data Results & Data ([facility]) Vital Signs (Past 12 Hours) Vital Signs Temp Pulse Resp BP Pulse Ox 03/26/20 07:51 97.3 F L 67 16 133/69 96 PG Care Time/CCT Total # of Minutes Spent Total Time Spent with Patient: Total time spent is greater than 50% in coordination of care (as documented) at patient's floor/unit and/or counseling patient: Coding Level of Care Code 22544 Subseq Hosp Care Lvl 3 Diagnoses Rhabdomyolysis M62.82 Rhabdomyolysis type: non-traumatic Bilateral leg pain M79.604; M79.605 Infection due to 2019 novel coronavirus U07.1 Hepatitis C B19.20 Abnormal LFTs R94.5 GERD (gastroesophageal reflux disease) K21.9 (1) Rhabdomyolysis Rhabdomyolysis type: non-traumatic Qualified Code(s): M62.82 - Rhabdomyolysis
--- NOTE | 2020-03-26 15:22 | Ultrasound Report ---
US venous doppler LE RT CLINICAL HISTORY: Right leg pain COMPARISON STUDY: No previous studies for comparison. FINDINGS: Real-time and color flow Doppler imaging were performed. Flow was seen within the femoral, popliteal and calf veins with no intraluminal thrombus demonstrated. The saphenous vein is patent. Th ere is trace fluid adjacent to the lateral aspect of the knee. IMPRESSION: No evidence of right lower extremity DVT. ACT 112: Negative or not required by law. Electronically signed by: Truong Jimenez M.D. 03/26/2020 3:21 PM
[2020-03-27] MEDS: NSS + 20MEQ KCL 20 MEQ/1,000 ML BAG IV SCH ×3 (01:01→09:59)
[2020-03-27] MEDS: oxyCODONE HCL IR 5 MG TAB (IMMEDIATE RELEASE) PO PRN ×4 (01:02→13:20)
[2020-03-27] MEDS: ZINC SULFATE 220 MG CAPSULE PO SCH (08:41)
[2020-03-27] MEDS: PANTOprazole 40 MG TAB PO SCH (08:41)
[2020-03-27] MEDS: CETIRIZINE HCL 10 MG TABLET PO SCH (08:42)
--- NOTE | 2020-03-27 16:01 | Discharge Summary ---
Date of Service March 27, 2020 Admission HPI Per Admitting Provider The patient is a 29-year-old male inmate, with a past medical history including hepatitis C, GERD, allergic rhinitis, kidney stone, anxiety and insomnia, who presents to the emergency department with the above complaints. He usually does a workout every week for his lower extremities, but he developed extreme pain following his usual workout, and presents to the ED for assessment. He reports taking ibuprofen 1200 mg 3 times per day due to the pain. His most recent kidney stone was 1 week ago. Pertinent laboratories in ED: AST 1327, ALT 219, CK 92,087 and COVID-19 positive. Principal Diagnosis Rhabdomyolysis Incidental Covid positive test 03/23/2020 Discharge Exam The patient appeared well still in some mild to moderate pain Vital signs as documented. Lungs are clear to auscultation and appear unlabored Cardiac exam, Rhythm is regular.. No murmurs, rubs or gallops. Abdominal exam reveals normal bowel sounds, soft non tender, no masses Extremities thigh are slightly swollen right is greater than left Neurologic exam is alert and oriented, no focal loss of strength or sensation Skin is without bruises or rashes Psychologically is without concerns for anxiety or depression. Discharge Data Allergies Allergy/AdvReac Type Severity Reaction Status Date / Time No Known Allergies Allergy Unverified 03/23/20 23:16 Consultations 03/24/20 02:26 ED Decision to Admit Stat 03/24/20 03:45 Consult Case Management - Discharge Planning Routine Ordered Studies 03/26/20 14:14 US venous doppler LE RT Routine Hospital Course (1) Rhabdomyolysis: Rhabdomyolysis/bilateral lower extremity pain- CK is now 6K, will [facility], check labs in one week (2) Bilateral leg pain: See above (3) Infection due to 2019 novel coronavirus: Infection due to COVID-19 virus-no hypoxia, no cxr done remains asx since is not hypoxic will not need treatment (4) Hepatitis C: Hepatitis C/abnormal LFTs- No previous labs for comparison. Suspect at least in part his significantly abnormal LFTs are a combination of rhabdomyolysis plus history of hepatitis C will recommend follow up of LFT and hep c in the future to consider enrolling for treatment (5) Abnormal LFTs: See above (6) GERD (gastroesophageal reflux disease): Change omeprazole to pantoprazole Total Time Total Time Spent Total Time Spent (In Minutes): It required greater than 30 minutes to prepare this patient for discharge this [facility] and speaking to [facility] physician prior to decision to discharge Discharge Plan Discharge Items [facility] Disposition: [facility] Reason For Visit: FHABDOMYOLYSIS, COVID-19 INFECTION, TRANSAMINITIS Discharge Diagnosis: rhabdomyolysis Activity: Per Instructions section Activity Comment: no strenous physical activity for one week Non-emergency contact: Primary Care Provider Call non-emergency contact if: you have any medication questions and your symptoms worsen Follow-up/Referrals: PCP,NO [Primary Care Provider] - Diet: Regular Addtl Attending Provider Instructions: assure plenty of hyration, no physical activity for at least one week recheck renal funciton in 5-7 days please have plenty of hydration Home Isolation COVID-19 Instructions The following information about Home Isolation is from the CDC Website: https://www.cdc.gov/coronavirus/2019-ncov/hcp/koafntmz-klmgmys-bjoxdy.html Stay home except to get medical care People who are mildly ill with COVID-19 are able to isolate at home during their illness. You should restrict activities outside your home, except for getting medical care. Do not go to work, school, or public areas. Avoid using public transportation, ride-sharing, or taxis. Separate yourself from other people and animals in your home People: As much as possible, you should stay in a specific room and away from other people in your home. Also, you should use a separate bathroom, if available. Animals: You should restrict contact with pets and other animals while you are sick with COVID-19, just like you would around other people. Although there have not been reports of pets or other animals becoming sick with COVID-19, it is still recommended that people sick with COVID-19 limit contact with animals until more information is known about the virus. When possible, have another member of your household care for your animals while you are sick. If you are sick with COVID-19, avoid contact with your pet, including petting, snuggling, being kissed or licked, and sharing food. If you must care for your pet or be around animals while you are sick, wash your hands before and after you interact with pets and wear a face mask. Call ahead before visiting your doctor If you have a medical appointment, call the healthcare provider and tell them that you have or may have COVID-19. This will help the healthcare providers office take steps to keep other people from getting infected or exposed. Wear a face mask You should wear a face mask when you are around other people (e.g., sharing a room or vehicle) or pets and before you enter a healthcare providers office. If you are not able to wear a face mask (for example, because it causes trouble breathing), then people who live with you should not stay in the same room with you, or they should wear a face mask if they enter your room. Cover your coughs and sneezes Cover your mouth and nose with a tissue when you cough or sneeze. Throw used tissues in a lined trash can. Immediately wash your hands with soap and water for at least 20 seconds or, if soap and water are not available, clean your hands with an alcohol-based hand coating supervisor that contains at least 60% alcohol. Clean your hands often Wash your hands often with soap and water for at least 20 seconds, especially after blowing your nose, coughing, or sneezing; going to the bathroom; and before eating or preparing food. If soap and water are not readily available, use an alcohol-based hand coating supervisor with at least 60% alcohol, covering all surfaces of your hands and rubbing them together until they feel dry. Soap and water are the best option if hands are visibly dirty. Avoid touching your eyes, nose, and mouth with unwashed hands. Avoid sharing personal household items You should not share dishes, drinking glasses, cups, eating utensils, towels, or bedding with other people or pets in your home. After using these items, they should be washed thoroughly with soap and water. Clean all high-touch surfaces everyday High touch surfaces include counters, tabletops, doorknobs, bathroom fixtures, toilets, phones, keyboards, tablets, and bedside tables. Also, clean any surfaces that may have blood, stool, or body fluids on them. Use a household cleaning spray or wipe, according to the label instructions. Labels contain instructions for safe and effective use of the cleaning product including precautions you should take when applying the product, such as wearing gloves and making sure you have good ventilation during use of the product. Monitor your symptoms Seek prompt medical attention if your illness is worsening (e.g., difficulty breathing).Beforeseeking care, call your healthcare provider and tell them that you have, or are being evaluated for, COVID-19. Put on a face mask before you enter the facility. These steps will help the healthcare providers office to keep other people in the office or waiting room from getting infected or exposed. Ask your healthcare provider to call the local or state health department. Persons who are placed under active monitoring or facilitated self- monitoring should follow instructions provided by their local health department or occupational health professionals, as appropriate. When working with your local health department check their available hours. If you have a medical emergency and need to call 911, notify the dispatch personnel that you have, or are being evaluated for COVID-19. If possible, put on a face mask before emergency medical services arrive. Discontinuing home isolation Patients with confirmed COVID-19 should remain under home isolation precautions until the risk of secondary transmission to others is thought to be low. The decision to discontinue home isolation precautions should be made on a [id number] basis, in consultation with healthcare providers and [facility] health departments. Pending Studies at Discharge: No Stand-Alone Forms: [facility] Skilled Items Patient informed of condition?: Yes Discharge Level of Care: Other Communicable Disease: Yes Discharge Prognosis: Stable Lines: None Urinary Catheter: Yes Medications and DC Order Prescriptions: Continued trazodone 50 mg Tablet 50 mg PO HS RF: 0 cetirizine [Zyrtec] 10 mg Tablet 10 mg PO DAILY RF: 0 buspirone 10 mg Tablet 10 mg PO BID RF: 0 omeprazole 20 mg Tablet,Delayed Release (Dr/Ec) 20 mg PO DAILY RF: 0 Discharge Orders: Discharge Order (Routine); Ordered 03/27/20 Ordered By: Forrest Felxi Admission Data Admit Date/Time: 03/24/20 02:55 Attending Provider: Forrest Felix Admit Provider: Pop Ortiz Primary Care Provider: PCP,NO Other Providers: Pop Ortiz Other Interventions: Discharge Summary Assessment (RN) Last Done: 03/27/20 13:11 Coding Level of Care Code D/C Day Management >30 mins Diagnoses Rhabdomyolysis M62.82 Rhabdomyolysis type: non-traumatic Bilateral leg pain M79.604; M79.605 Infection due to 2019 novel coronavirus U07.1 Hepatitis C B19.20 Abnormal LFTs R94.5 GERD (gastroesophageal reflux disease) K21.9
== END 2020-03-27 14:26 | DRG 557 ==
LOC: ED 22:36 → SUATTDRO 03-24 02:55 → EDINP 03-24 02:55 → 3E 03-24 15:53